=== PATIENT | female | born 1955 ===

== ENCOUNTER 2022-05-30 21:38 | Inpatient (IN) | payer MEDICARE, SELFPAY ==
[~2022-05-30] VITALS: Ht 152.4 cm; Wt 48.2 kg
[2022-05-30] VITALS (8 sets, daily range): BP systolic 83–101; BP diastolic 51–69
[2022-05-30] MEDS ORDERED: LR 500 ML IV SCH (22:05)
[2022-05-30] MEDS ORDERED: GLUCAGON INJ 1MG VIAL SC PRN (22:25)
[2022-05-30] MEDS ORDERED: GLUCOSE 4GM CHEW TABLET PO PRN (22:25)
[2022-05-30] MEDS ORDERED: DEXTROSE 50% 50 ML SYRINGE IV PRN (22:25)
[2022-05-30] MEDS ORDERED: HYDROCORTISONE 100 MG/2 ML VIAL (J1720 PER 1) IV ONE (23:00)
[2022-05-30 23:10] LABS: BASO % 0.2 % (0.0-1.0); HEMATOCRIT 34.4 % (36.0-47.0); HEMOGLOBIN 10.8 g/dl (12.0-15.5); LYMPH # 1.4 10^3/uL (1.5-5.0); LYMPH % 7.4 % (24.0-44.0); MEAN CORPUSCULAR HEMOGLOBIN 30.1 pg (27.0-33.0); MEAN CORPUSCULAR HGB CONC 31.4 g/dl (32.0-36.5); MEAN CORPUSCULAR VOLUME 95.8 fl (80.0-96.0); MONO # 1.3 10^3/uL (0.0-0.8); MONO % 6.8 % (2.0-8.0); NEUTROPHILS # 15.9 10^3/uL (1.5-8.5); PLATELET COUNT, AUTOMATED 290 10^3/uL (150-450); RED BLOOD COUNT 3.59 10^6/uL (4.00-5.40); WHITE BLOOD COUNT 18.7 10^3/uL (4.0-10.0)
[2022-05-30 23:42] LABS: CALCIUM LEVEL 8.9 MG/DL (8.8-10.2); CREATININE FOR GFR 1.29 MG/DL (0.55-1.30); GLOMERULAR FILTRATION RATE 43.9 (>45); POTASSIUM SERUM 5.2 MEQ/L (3.5-5.1)
[2022-05-30] MEDS ORDERED: CLON0.25 PO (23:55)
[2022-05-30] MEDS ORDERED: FERR1TAB8 GT (23:55)
[2022-05-30] MEDS ORDERED: CLON0.5T17 PO (23:55)
[2022-05-30] MEDS ORDERED: SYMB16INH INH (23:55)
[2022-05-30] MEDS ORDERED: MIRA3350 PO (23:55)
[2022-05-30] MEDS ORDERED: NAME10TA GT (23:55)
[2022-05-30] MEDS ORDERED: CALCD50TA GT (23:55)
[2022-05-30] MEDS ORDERED: MUPI2OI TOP (23:55)
[2022-05-30] MEDS ORDERED: DONE10TA90 GT (23:55)
[2022-05-30] MEDS ORDERED: COMBAER6 INH (23:55)
[2022-05-30] MEDS ORDERED: ZOLO100T GT (23:55)
[2022-05-30] MEDS ORDERED: OLAN2.5T25 PO (23:55)
[2022-05-30] MEDS ORDERED: ASPI81CH33 GT (23:55)
[2022-05-30] MEDS ORDERED: VITA-172 GT (23:55)
[2022-05-31] VITALS (110 sets, daily range): BP systolic 71–167; BP diastolic 36–110
[2022-05-31] MEDS ORDERED: HOME MED LIST COMPLETE! XX SCH
[2022-05-31] MEDS ORDERED: UNRESOLVED CLARIFICATION ENTRY XX SCH (00:01)
[2022-05-31] MEDS ORDERED: LR IV ONE (00:35)
[2022-05-31] MEDS ORDERED: LACTATED RINGER'S 1000 ML IV ONE (00:45)
[2022-05-31] MEDS: NOREPINEPHRINE/DEXTROSE 8 MG in IV 1 EA IV SCH ×3 (00:51→23:25)
[2022-05-31] MEDS: VASOPRESSIN INJ 20 UNITS in NS 499 ML IV SCH ×3 (00:53→17:25)
[2022-05-31] MEDS ORDERED: COMBIVENT RESPIMAT 100-20MCG INHALER 4GM INH PRN (01:05)
[2022-05-31] MEDS ORDERED: IPRATROPIUM 0.5MG/ALBUTEROL 2.5MG INH SOL UD 3ML (DUONEB) NEB PRN (01:10)
[2022-05-31] MEDS ORDERED: ETOMIDATE INJ 20MG/10ML VIAL IV ONE (01:55)
[2022-05-31] MEDS ORDERED: ROCURONIUM BROMIDE 50 MG/5 ML VIAL IV ONE (01:55)
[2022-05-31 01:56] LABS: CK-MB VALUE MASS 12.5 NG/ML (<3.6); MB/CK RELATIVE INDEX 7.44 (< OR =4)
[2022-05-31] MEDS ORDERED: LEVALBUTEROL 1.25 MG/0.5 ML CONCENTRATE NEB NEB ONE (02:00)
[2022-05-31] MEDS ORDERED: levETIRAcetam INJection 500 MG in D5W MINI-BAG PLUS 100 ML IV ONE (02:00)
[2022-05-31] MEDS ORDERED: propofoL 1,000 MG in IV 1 EA IV SCH (02:00)
[2022-05-31] MEDS: IPRATROPIUM 0.5MG/ALBUTEROL 2.5MG INH SOL UD 3ML (DUONEB) NEB SCH ×7 (02:21→23:46)
[2022-05-31 02:35] LABS: ABG BASE EXCESS -19.3 (-2.0-2.0); ABG O2 SATURATION 99.4 % (95.0-99.0); ABG PARTIAL PRESSURE CO2 35.7 mmHg (35.0-45.0); ABG PARTIAL PRESSURE O2 234.7 mmHg (75.0-100.0); ABG STANDARD HCO3 10.2 MEQ/L (22.0-26.0); ABG TOTAL CO2 11.1 MEQ/L (23.0-31.0)
[2022-05-31 02:36] LABS: ABG pH (ARTERIAL) 7.064 UNITS (7.350-7.450)
[2022-05-31] MEDS ORDERED: ATROPINE SULF 1MG/10ML SYRINGE (J0461) ONE (03:45)
[2022-05-31] MEDS ORDERED: EPINEPHrine 1MG/10ML SYRINGE 1.5IN ONE (03:45)
[2022-05-31 03:53] LABS: BASO # 0.1 10^3/uL (0.0-0.2); BASO % 0.3 % (0.0-1.0); HEMATOCRIT 34.7 % (36.0-47.0); HEMOGLOBIN 10.8 g/dl (12.0-15.5); LYMPH % 2.9 % (24.0-44.0); MEAN CORPUSCULAR HEMOGLOBIN 30.3 pg (27.0-33.0); MEAN CORPUSCULAR HGB CONC 31.1 g/dl (32.0-36.5); MEAN CORPUSCULAR VOLUME 97.2 fl (80.0-96.0); MONO % 5.2 % (2.0-8.0); NEUTROPHILS # 31.2 10^3/uL (1.5-8.5); NEUTROPHILS % 89.4 % (36.0-66.0); PLATELET COUNT, AUTOMATED 310 10^3/uL (150-450); RED BLOOD COUNT 3.57 10^6/uL (4.00-5.40)
[2022-05-31 04:12] LABS: MONO # 1.8 10^3/uL (0.0-0.8); WHITE BLOOD COUNT 34.8 10^3/uL (4.0-10.0)
[2022-05-31 04:24] LABS: CK-MB VALUE MASS 14.5 NG/ML (<3.6); MB/CK RELATIVE INDEX 6.42 (< OR =4)
[2022-05-31] MEDS: ENOXAPARIN 60MG/0.6ML SYRINGE (J1650 PER 10MG) SC SCH ×2 (04:52→17:33)
[2022-05-31] MEDS: HYDROCORTISONE 100 MG/2 ML VIAL (J1720 PER 1) IV SCH ×4 (04:53→22:52)
[2022-05-31 05:54] LABS: ABG BASE EXCESS -15.6 (-2.0-2.0); ABG HCO3 11.2 MEQ/L (22.0-26.0); ABG O2 SATURATION 97.2 % (95.0-99.0); ABG PARTIAL PRESSURE CO2 29.4 mmHg (35.0-45.0); ABG PARTIAL PRESSURE O2 109.5 mmHg (75.0-100.0); ABG STANDARD HCO3 12.6 MEQ/L (22.0-26.0); ABG TOTAL CO2 12.1 MEQ/L (23.0-31.0)
[2022-05-31 05:57] LABS: ABG pH (ARTERIAL) 7.197 UNITS (7.350-7.450)
[2022-05-31] MEDS ORDERED: VANCOMYCIN HCL 1,000 MG, VIAL MATE ADAPTER 1 EACH in NS 250 ML IV SCH (06:00)
[2022-05-31 06:09] LABS: BASO # 0.1 10^3/uL (0.0-0.2); BASO % 0.3 % (0.0-1.0); HEMATOCRIT 35.9 % (36.0-47.0); HEMOGLOBIN 11.2 g/dl (12.0-15.5); LYMPH % 2.7 % (24.0-44.0); MEAN CORPUSCULAR HEMOGLOBIN 29.8 pg (27.0-33.0); MEAN CORPUSCULAR HGB CONC 31.2 g/dl (32.0-36.5); MEAN CORPUSCULAR VOLUME 95.5 fl (80.0-96.0); NEUTROPHILS # 31.9 10^3/uL (1.5-8.5); NEUTROPHILS % 89.5 % (36.0-66.0); PLATELET COUNT, AUTOMATED 294 10^3/uL (150-450); RED BLOOD COUNT 3.76 10^6/uL (4.00-5.40)
[2022-05-31 06:14] LABS: MONO % 5.6 % (2.0-8.0); WHITE BLOOD COUNT 35.6 10^3/uL (4.0-10.0)
[2022-05-31 06:32] LABS: ALBUMIN 2.5 GM/DL (3.2-5.2); BILIRUBIN,TOTAL 0.9 MG/DL (0.2-1.0); CALCIUM LEVEL 8.6 MG/DL (8.8-10.2); CREATININE FOR GFR 1.52 MG/DL (0.55-1.30); GLOMERULAR FILTRATION RATE 36.3 (>45); POTASSIUM SERUM 3.9 MEQ/L (3.5-5.1); TOTAL PROTEIN 5.7 GM/DL (6.4-8.2)
[2022-05-31 06:40] LABS: CK-MB VALUE MASS 16.9 NG/ML (<3.6); MB/CK RELATIVE INDEX 7.1 (< OR =4)
[2022-05-31] MEDS ORDERED: SYMBICORT 160/4.5MCG INHALER 6GM INH SCH (08:00)
[2022-05-31] MEDS: AZITHROMYCIN INJ 500 MG, VIAL MATE ADAPTER 1 EACH in NS 250 ML IV SCH (08:21)
[2022-05-31] MEDS: LR 1,000 ML IV SCH ×2 (08:30→09:03)
[2022-05-31] MEDS: MIDAZOLAM INJ 2MG/2ML VIAL (J2250 PER 1MG) IV PRN ×2 (08:41→13:42)
[2022-05-31 08:45] LABS: CK-MB VALUE MASS 16.1 NG/ML (<3.6); MB/CK RELATIVE INDEX 7.06 (< OR =4)
[2022-05-31] MEDS: fentaNYL CITRATE 1,000 MCG in NS 80 ML IV SCH (08:58)
[2022-05-31] MEDS ORDERED: ASPIRIN 81 MG CHEW TABLET PO SCH (09:00)
[2022-05-31] MEDS ORDERED: ENOXAPARIN 40MG/0.4ML SYRINGE (J1650 PER 10MG) SC SCH (09:00)
[2022-05-31] MEDS ORDERED: cefTRIAXone SOD 1 GM in D5W MINI-BAG PLUS 50 ML IV SCH (09:00)
[2022-05-31] MEDS: CHLORHEXIDINE GLUCONATE 0.12 % 15ML UDC (PERIDEX ORAL RINSE) MT SCH ×2 (09:00→21:31)
[2022-05-31] MEDS ORDERED: VASOPRESSIN INJ 20 UNITS/ML VIAL As Ordered ONE (09:43)
[2022-05-31] MEDS ORDERED: MIDAZOLAM 5MG/ML 1ML VIAL (J2250 PER 1MG) As Ordered ONE (09:47)
[2022-05-31] MEDS ORDERED: fentaNYL 100 MCG/2 ML INJECTION As Ordered ONE (09:47)
[2022-05-31] MEDS ORDERED: LIDOCAINE 1% MDV 20ML VIAL As Ordered ONE (09:49)
[2022-05-31] MEDS ORDERED: MIDAZOLAM 5MG/ML 1ML VIAL (J2250 PER 1MG) IV ONE (09:50)
[2022-05-31] MEDS ORDERED: LIDOCAINE 1% MDV 20ML VIAL IM ONE (09:50)
[2022-05-31] MEDS ORDERED: fentaNYL 100 MCG/2 ML INJECTION IV ONE (09:50)
[2022-05-31] MEDS ORDERED: SODIUM CHLORIDE 0.9% INJ 10 ML SYR IV PRN (10:50)
[2022-05-31 11:28] LABS: ABG BASE EXCESS -17.5 (-2.0-2.0); ABG HCO3 8.5 MEQ/L (22.0-26.0); ABG O2 SATURATION 98.5 % (95.0-99.0); ABG PARTIAL PRESSURE CO2 21.7 mmHg (35.0-45.0); ABG PARTIAL PRESSURE O2 149.3 mmHg (75.0-100.0); ABG STANDARD HCO3 11.3 MEQ/L (22.0-26.0); ABG TOTAL CO2 9.2 MEQ/L (23.0-31.0)
[2022-05-31 11:31] LABS: ABG pH (ARTERIAL) 7.213 UNITS (7.350-7.450)
[2022-05-31] MEDS: PANTOPRAZOLE 40MG VIAL IV SCH (11:40)
[2022-05-31] MEDS: PIPERACILLIN/TAZOBACTAM SOD 4.5 GM in D5W MINI-BAG PLUS 50 ML IV SCH ×2 (11:48→18:54)
[2022-05-31] MEDS ORDERED: VANCOMYCIN HCL 500 MG in D5W MINI-BAG PLUS 100 ML IV SCH (12:00)
[2022-05-31 12:35] LABS: INR 2.04; PROTHROMBIN TIME 23.5 SECONDS (12.7-14.5)
[2022-05-31 12:36] LABS: PARTIAL THROMBOPLASTIN TIME 60.6 SECONDS (25.9-37.0)
[2022-05-31] MEDS: VANCOMYCIN HCL 500 MG in D5W MINI-BAG PLUS 100 ML IV SCH (13:12)
[2022-05-31] MEDS ORDERED: LR 1,000 ML IV ONE (13:30)
[2022-05-31] MEDS: ASPIRIN 300 MG SUPP PR SCH (14:53)
[2022-05-31 15:42] LABS: MAGNESIUM LEVEL 2.2 MG/DL (1.8-2.4)
[2022-05-31 16:39] LABS: ABG HCO3 13.3 MEQ/L (22.0-26.0); ABG O2 SATURATION 98.5 % (95.0-99.0); ABG PARTIAL PRESSURE CO2 28.6 mmHg (35.0-45.0); ABG PARTIAL PRESSURE O2 143.6 mmHg (75.0-100.0); ABG TOTAL CO2 14.2 MEQ/L (23.0-31.0); ABG pH (ARTERIAL) 7.285 UNITS (7.350-7.450)
[2022-05-31] MEDS: levETIRAcetam INJection 500 MG in D5W MINI-BAG PLUS 100 ML IV SCH (17:31)
[2022-05-31 18:21] LABS: ABG BASE EXCESS -10.8 (-2.0-2.0); ABG HCO3 13.9 MEQ/L (22.0-26.0); ABG O2 SATURATION 97.7 % (95.0-99.0); ABG PARTIAL PRESSURE CO2 27.5 mmHg (35.0-45.0); ABG PARTIAL PRESSURE O2 109.4 mmHg (75.0-100.0); ABG STANDARD HCO3 15.9 MEQ/L (22.0-26.0); ABG TOTAL CO2 14.7 MEQ/L (23.0-31.0); ABG pH (ARTERIAL) 7.321 UNITS (7.350-7.450)
[2022-05-31 19:56] LABS: ABG BASE EXCESS -9.9 (-2.0-2.0); ABG HCO3 14.4 MEQ/L (22.0-26.0); ABG O2 SATURATION 98.4 % (95.0-99.0); ABG PARTIAL PRESSURE O2 128.9 mmHg (75.0-100.0); ABG STANDARD HCO3 16.5 MEQ/L (22.0-26.0); ABG TOTAL CO2 15.2 MEQ/L (23.0-31.0); ABG pH (ARTERIAL) 7.344 UNITS (7.350-7.450)
[2022-05-31 20:15] LABS: INR 2.23; PROTHROMBIN TIME 25.1 SECONDS (12.7-14.5)
[2022-05-31 20:16] LABS: PARTIAL THROMBOPLASTIN TIME 47.7 SECONDS (25.9-37.0)
[2022-05-31 20:20] LABS: BLOOD UREA NITROGEN 15 MG/DL (7-18); CALCIUM LEVEL 7.4 MG/DL (8.8-10.2); CARBON DIOXIDE LEVEL 13 MEQ/L (21-32); CHLORIDE LEVEL 108 MEQ/L (98-107); GLOMERULAR FILTRATION RATE > 60.0 (>45); GLUCOSE, FASTING 197 MG/DL (70-100); MAGNESIUM LEVEL 1.9 MG/DL (1.8-2.4); PHOSPHORUS LEVEL 2.7 MG/DL (2.5-4.9); POTASSIUM SERUM 4.3 MEQ/L (3.5-5.1); SODIUM LEVEL 138 MEQ/L (136-145)
[2022-05-31] MEDS ORDERED: MAG SULF 1GM/100ML (MAG RUN) 1 GM in IV 1 EA IV ONE (22:00)
[2022-05-31 22:09] LABS: ABG pH (ARTERIAL) 7.373 UNITS (7.350-7.450)
[2022-05-31 22:10] LABS: ABG BASE EXCESS -10.7 (-2.0-2.0); ABG HCO3 12.8 MEQ/L (22.0-26.0); ABG O2 SATURATION 97.6 % (95.0-99.0); ABG PARTIAL PRESSURE CO2 22.5 mmHg (35.0-45.0); ABG STANDARD HCO3 15.9 MEQ/L (22.0-26.0); ABG TOTAL CO2 13.5 MEQ/L (23.0-31.0)
[2022-05-31] MEDS: CALCIUM GLUCONATE 1,000 MG in D5W MINI-BAG PLUS 100 ML IV SCH ×2 (22:52→23:25)
[2022-06-01] VITALS (89 sets, daily range): BP systolic 77–169; BP diastolic 54–121
[2022-06-01 00:01] LABS: ABG BASE EXCESS -8.9 (-2.0-2.0); ABG HCO3 14.7 MEQ/L (22.0-26.0); ABG O2 SATURATION 98.7 % (95.0-99.0); ABG PARTIAL PRESSURE CO2 25.1 mmHg (35.0-45.0); ABG PARTIAL PRESSURE O2 132.8 mmHg (75.0-100.0); ABG STANDARD HCO3 17.3 MEQ/L (22.0-26.0); ABG TOTAL CO2 15.5 MEQ/L (23.0-31.0); ABG pH (ARTERIAL) 7.385 UNITS (7.350-7.450)
[2022-06-01] MEDS: MIDAZOLAM INJ 2MG/2ML VIAL (J2250 PER 1MG) IV PRN (00:29)
[2022-06-01] MEDS: VANCOMYCIN HCL 500 MG in D5W MINI-BAG PLUS 100 ML IV SCH (00:29)
[2022-06-01] MEDS: VASOPRESSIN INJ 20 UNITS in NS 499 ML IV SCH ×3 (00:58→16:44)
[2022-06-01 01:31] LABS: ABG BASE EXCESS -8.4 (-2.0-2.0); ABG HCO3 14.6 MEQ/L (22.0-26.0); ABG O2 SATURATION 98.8 % (95.0-99.0); ABG PARTIAL PRESSURE CO2 23.1 mmHg (35.0-45.0); ABG PARTIAL PRESSURE O2 164.2 mmHg (75.0-100.0); ABG STANDARD HCO3 17.7 MEQ/L (22.0-26.0); ABG TOTAL CO2 15.3 MEQ/L (23.0-31.0); ABG pH (ARTERIAL) 7.418 UNITS (7.350-7.450)
[2022-06-01 02:05] LABS: BLOOD UREA NITROGEN 13 MG/DL (7-18); CALCIUM LEVEL 8.1 MG/DL (8.8-10.2); CARBON DIOXIDE LEVEL 18 MEQ/L (21-32); CHLORIDE LEVEL 104 MEQ/L (98-107); CREATININE FOR GFR 0.83 MG/DL (0.55-1.30); GLOMERULAR FILTRATION RATE > 60.0 (>45); GLUCOSE, FASTING 205 MG/DL (70-100); MAGNESIUM LEVEL 2.2 MG/DL (1.8-2.4); POTASSIUM SERUM 4.1 MEQ/L (3.5-5.1); SODIUM LEVEL 135 MEQ/L (136-145)
[2022-06-01] MEDS: PIPERACILLIN/TAZOBACTAM SOD 4.5 GM in D5W MINI-BAG PLUS 50 ML IV SCH ×3 (02:52→18:37)
[2022-06-01] MEDS ORDERED: CALCIUM GLUCONATE 1,000 MG, VIAL MATE ADAPTER 1 EACH in NS 100 ML IV ONE ×3 (03:00→15:20)
[2022-06-01] MEDS ORDERED: SODIUM PHOSPHATE INJ 30 MMOL in NS 250 ML IV ONE (04:00)
[2022-06-01] MEDS: IPRATROPIUM 0.5MG/ALBUTEROL 2.5MG INH SOL UD 3ML (DUONEB) NEB SCH ×5 (04:05→19:13)
[2022-06-01 04:09] LABS: ABG BASE EXCESS -6.7 (-2.0-2.0); ABG HCO3 16.4 MEQ/L (22.0-26.0); ABG O2 SATURATION 98.9 % (95.0-99.0); ABG PARTIAL PRESSURE CO2 25.6 mmHg (35.0-45.0); ABG PARTIAL PRESSURE O2 150.1 mmHg (75.0-100.0); ABG TOTAL CO2 17.2 MEQ/L (23.0-31.0); ABG pH (ARTERIAL) 7.425 UNITS (7.350-7.450)
[2022-06-01] MEDS: HYDROCORTISONE 100 MG/2 ML VIAL (J1720 PER 1) IV SCH ×4 (04:12→23:14)
[2022-06-01] MEDS: levETIRAcetam INJection 500 MG in D5W MINI-BAG PLUS 100 ML IV SCH (05:17)
[2022-06-01] MEDS: ENOXAPARIN 60MG/0.6ML SYRINGE (J1650 PER 10MG) SC SCH ×2 (05:17→17:43)
[2022-06-01 06:00] LABS: ABG BASE EXCESS -7.7 (-2.0-2.0); ABG HCO3 15.5 MEQ/L (22.0-26.0); ABG O2 SATURATION 98.3 % (95.0-99.0); ABG PARTIAL PRESSURE CO2 24.7 mmHg (35.0-45.0); ABG PARTIAL PRESSURE O2 124.2 mmHg (75.0-100.0); ABG STANDARD HCO3 18.2 MEQ/L (22.0-26.0); ABG TOTAL CO2 16.2 MEQ/L (23.0-31.0); ABG pH (ARTERIAL) 7.415 UNITS (7.350-7.450)
[2022-06-01 06:09] LABS: BASO % 0.1 % (0.0-1.0); HEMATOCRIT 27.5 % (36.0-47.0); HEMOGLOBIN 9.3 g/dl (12.0-15.5); LYMPH # 1.6 10^3/uL (1.5-5.0); LYMPH % 5.3 % (24.0-44.0); MEAN CORPUSCULAR HEMOGLOBIN 30.6 pg (27.0-33.0); MEAN CORPUSCULAR HGB CONC 33.8 g/dl (32.0-36.5); MEAN CORPUSCULAR VOLUME 90.5 fl (80.0-96.0); MONO % 5.1 % (2.0-8.0); NEUTROPHILS # 26.6 10^3/uL (1.5-8.5); RED BLOOD COUNT 3.04 10^6/uL (4.00-5.40)
[2022-06-01 06:21] LABS: PLATELET COUNT, AUTOMATED 155 10^3/uL (150-450); WHITE BLOOD COUNT 30.3 10^3/uL (4.0-10.0)
[2022-06-01 06:22] LABS: INR 2.18; PROTHROMBIN TIME 24.6 SECONDS (12.7-14.5)
[2022-06-01 06:23] LABS: PARTIAL THROMBOPLASTIN TIME 53.3 SECONDS (25.9-37.0)
[2022-06-01 06:29] LABS: MONO # 1.6 10^3/uL (0.0-0.8)
[2022-06-01] MEDS: CALCIUM GLUCONATE 1,000 MG, VIAL MATE ADAPTER 1 EACH in NS 100 ML IV SCH ×2 (06:31→07:56)
[2022-06-01 06:45] LABS: ALT/SGPT 2128 U/L (12-78); BILIRUBIN,TOTAL 1.1 MG/DL (0.2-1.0); BLOOD UREA NITROGEN 11 MG/DL (7-18); CALCIUM LEVEL 7.7 MG/DL (8.8-10.2); CARBON DIOXIDE LEVEL 17 MEQ/L (21-32); CHLORIDE LEVEL 104 MEQ/L (98-107); GLOMERULAR FILTRATION RATE > 60.0 (>45); GLUCOSE, FASTING 183 MG/DL (70-100); MAGNESIUM LEVEL 2.1 MG/DL (1.8-2.4); PHOSPHORUS LEVEL 3.1 MG/DL (2.5-4.9); POTASSIUM SERUM 4.4 MEQ/L (3.5-5.1); SODIUM LEVEL 133 MEQ/L (136-145); TOTAL PROTEIN 4.4 GM/DL (6.4-8.2)
[2022-06-01] MEDS ORDERED: MIDAZOLAM 5MG/ML 1ML VIAL (J2250 PER 1MG) IV STA (07:10)
[2022-06-01] MEDS: NOREPINEPHRINE/DEXTROSE 8 MG in IV 1 EA IV SCH ×3 (07:58→23:15)
[2022-06-01] MEDS: AZITHROMYCIN INJ 500 MG, VIAL MATE ADAPTER 1 EACH in NS 250 ML IV SCH (07:59)
[2022-06-01 08:19] LABS: HEMATOCRIT 27.3 % (36.0-47.0); HEMOGLOBIN 9.1 g/dl (12.0-15.5); MEAN CORPUSCULAR HGB CONC 33.3 g/dl (32.0-36.5); MEAN CORPUSCULAR VOLUME 90.1 fl (80.0-96.0); PLATELET COUNT, AUTOMATED 165 10^3/uL (150-450); RED BLOOD COUNT 3.03 10^6/uL (4.00-5.40); WHITE BLOOD COUNT 29.7 10^3/uL (4.0-10.0)
[2022-06-01 08:52] LABS: BLOOD UREA NITROGEN 10 MG/DL (7-18); CALCIUM LEVEL 7.9 MG/DL (8.8-10.2); CARBON DIOXIDE LEVEL 15 MEQ/L (21-32); CHLORIDE LEVEL 107 MEQ/L (98-107); CREATININE FOR GFR 0.71 MG/DL (0.55-1.30); GLOMERULAR FILTRATION RATE > 60.0 (>45); GLUCOSE, FASTING 168 MG/DL (70-100); MAGNESIUM LEVEL 2.1 MG/DL (1.8-2.4); PHOSPHORUS LEVEL 3.5 MG/DL (2.5-4.9); POTASSIUM SERUM 4.1 MEQ/L (3.5-5.1); SODIUM LEVEL 137 MEQ/L (136-145)
[2022-06-01] MEDS: fentaNYL CITRATE 1,000 MCG in NS 80 ML IV SCH (09:56)
[2022-06-01] MEDS: CHLORHEXIDINE GLUCONATE 0.12 % 15ML UDC (PERIDEX ORAL RINSE) MT SCH ×2 (10:27→22:01)
[2022-06-01] MEDS: PANTOPRAZOLE 40MG VIAL IV SCH (10:27)
[2022-06-01 10:47] LABS: ABG BASE EXCESS -7.7 (-2.0-2.0); ABG HCO3 16.3 MEQ/L (22.0-26.0); ABG PARTIAL PRESSURE CO2 28.1 mmHg (35.0-45.0); ABG PARTIAL PRESSURE O2 99.8 mmHg (75.0-100.0); ABG STANDARD HCO3 18.2 MEQ/L (22.0-26.0); ABG TOTAL CO2 17.2 MEQ/L (23.0-31.0); ABG pH (ARTERIAL) 7.382 UNITS (7.350-7.450)
[2022-06-01] MEDS: VANCOMYCIN HCL 750 MG, VIAL MATE ADAPTER 1 EACH in D5W 250 ML IV SCH ×2 (12:10→23:14)
[2022-06-01] MEDS: ASPIRIN 300 MG SUPP PR SCH (14:35)
[2022-06-01 14:36] LABS: HEMATOCRIT 26.4 % (36.0-47.0); HEMOGLOBIN 8.9 g/dl (12.0-15.5); MEAN CORPUSCULAR HEMOGLOBIN 30.6 pg (27.0-33.0); MEAN CORPUSCULAR HGB CONC 33.7 g/dl (32.0-36.5); MEAN CORPUSCULAR VOLUME 90.7 fl (80.0-96.0); PLATELET COUNT, AUTOMATED 154 10^3/uL (150-450); RED BLOOD COUNT 2.91 10^6/uL (4.00-5.40)
[2022-06-01 15:03] LABS: BLOOD UREA NITROGEN 9 MG/DL (7-18); CALCIUM LEVEL 8.1 MG/DL (8.8-10.2); CARBON DIOXIDE LEVEL 20 MEQ/L (21-32); CHLORIDE LEVEL 104 MEQ/L (98-107); CREATININE FOR GFR 0.79 MG/DL (0.55-1.30); GLOMERULAR FILTRATION RATE > 60.0 (>45); GLUCOSE, FASTING 158 MG/DL (70-100); MAGNESIUM LEVEL 1.9 MG/DL (1.8-2.4); PHOSPHORUS LEVEL 2.9 MG/DL (2.5-4.9); POTASSIUM SERUM 3.8 MEQ/L (3.5-5.1); SODIUM LEVEL 135 MEQ/L (136-145)
[2022-06-01] MEDS ORDERED: MAG SULF 1GM/100ML (MAG RUN) 1 GM in IV 1 EA IV ONE ×2 (16:00→22:00)
[2022-06-01] MEDS ORDERED: KCL 20MEQ IN 100ML SWI (KRUN) 20 MEQ in IV 1 EA IV ONE ×2 (16:00)
[2022-06-01] MEDS: levETIRAcetam INJection 1,000 MG in D5W MINI-BAG PLUS 100 ML IV SCH (17:43)
[2022-06-01 20:37] LABS: INR 1.83; PROTHROMBIN TIME 21.6 SECONDS (12.7-14.5)
[2022-06-01 20:38] LABS: PARTIAL THROMBOPLASTIN TIME 50.6 SECONDS (25.9-37.0)
[2022-06-01 20:42] LABS: BLOOD UREA NITROGEN 8 MG/DL (7-18); CALCIUM LEVEL 7.8 MG/DL (8.8-10.2); CARBON DIOXIDE LEVEL 19 MEQ/L (21-32); CHLORIDE LEVEL 106 MEQ/L (98-107); GLOMERULAR FILTRATION RATE > 60.0 (>45); GLUCOSE, FASTING 146 MG/DL (70-100); MAGNESIUM LEVEL 1.8 MG/DL (1.8-2.4); PHOSPHORUS LEVEL 2.1 MG/DL (2.5-4.9); SODIUM LEVEL 138 MEQ/L (136-145)
[2022-06-02] VITALS (71 sets, daily range): BP systolic 80–181; BP diastolic 54–224
[2022-06-02] MEDS: IPRATROPIUM 0.5MG/ALBUTEROL 2.5MG INH SOL UD 3ML (DUONEB) NEB SCH ×5 (00:02→15:32)
[2022-06-02] MEDS: VASOPRESSIN INJ 20 UNITS in NS 499 ML IV SCH ×2 (00:18→08:20)
[2022-06-02 00:54] LABS: ABG BASE EXCESS -0.6 (-2.0-2.0); ABG HCO3 22.5 MEQ/L (22.0-26.0); ABG O2 SATURATION 98.2 % (95.0-99.0); ABG PARTIAL PRESSURE O2 111.5 mmHg (75.0-100.0); ABG TOTAL CO2 23.5 MEQ/L (23.0-31.0); ABG pH (ARTERIAL) 7.479 UNITS (7.350-7.450)
[2022-06-02] MEDS ORDERED: POTASSIUM PHOSPHATE INJ 30 MMOL in D5W 250 ML IV ONE ×4 (01:00)
[2022-06-02 03:09] LABS: BLOOD UREA NITROGEN 8 MG/DL (7-18); CALCIUM LEVEL 8.2 MG/DL (8.8-10.2); CARBON DIOXIDE LEVEL 19 MEQ/L (21-32); CHLORIDE LEVEL 105 MEQ/L (98-107); CREATININE FOR GFR 0.77 MG/DL (0.55-1.30); GLOMERULAR FILTRATION RATE > 60.0 (>45); GLUCOSE, FASTING 139 MG/DL (70-100); MAGNESIUM LEVEL 1.9 MG/DL (1.8-2.4); PHOSPHORUS LEVEL 2.5 MG/DL (2.5-4.9); POTASSIUM SERUM 4.2 MEQ/L (3.5-5.1); SODIUM LEVEL 136 MEQ/L (136-145)
[2022-06-02] MEDS: PIPERACILLIN/TAZOBACTAM SOD 4.5 GM in D5W MINI-BAG PLUS 50 ML IV SCH ×3 (03:10→18:00)
[2022-06-02] MEDS ORDERED: MAG SULF 1GM/100ML (MAG RUN) 1 GM in IV 1 EA IV ONE (04:00)
[2022-06-02] MEDS: MIDAZOLAM INJ 2MG/2ML VIAL (J2250 PER 1MG) IV PRN ×2 (04:12→14:03)
[2022-06-02] MEDS: HYDROCORTISONE 100 MG/2 ML VIAL (J1720 PER 1) IV SCH ×3 (04:13→16:18)
[2022-06-02] MEDS: levETIRAcetam INJection 1,000 MG in D5W MINI-BAG PLUS 100 ML IV SCH ×2 (06:17→17:07)
[2022-06-02] MEDS: ENOXAPARIN 60MG/0.6ML SYRINGE (J1650 PER 10MG) SC SCH ×2 (06:18→17:07)
[2022-06-02 06:41] LABS: ABG BASE EXCESS -5.7 (-2.0-2.0); ABG HCO3 17.7 MEQ/L (22.0-26.0); ABG O2 SATURATION 97.5 % (95.0-99.0); ABG PARTIAL PRESSURE CO2 27.5 mmHg (35.0-45.0); ABG PARTIAL PRESSURE O2 108.1 mmHg (75.0-100.0); ABG STANDARD HCO3 19.8 MEQ/L (22.0-26.0); ABG TOTAL CO2 18.6 MEQ/L (23.0-31.0); ABG pH (ARTERIAL) 7.427 UNITS (7.350-7.450)
[2022-06-02 06:42] LABS: BASO % 0.1 % (0.0-1.0); HEMATOCRIT 25.1 % (36.0-47.0); HEMOGLOBIN 8.3 g/dl (12.0-15.5); LYMPH # 1.4 10^3/uL (1.5-5.0); MEAN CORPUSCULAR HEMOGLOBIN 30.5 pg (27.0-33.0); MEAN CORPUSCULAR HGB CONC 33.1 g/dl (32.0-36.5); MEAN CORPUSCULAR VOLUME 92.3 fl (80.0-96.0); MONO # 1.3 10^3/uL (0.0-0.8); MONO % 4.7 % (2.0-8.0); NEUTROPHILS # 24.7 10^3/uL (1.5-8.5); NEUTROPHILS % 89.1 % (36.0-66.0); PLATELET COUNT, AUTOMATED 147 10^3/uL (150-450); RED BLOOD COUNT 2.72 10^6/uL (4.00-5.40); WHITE BLOOD COUNT 27.7 10^3/uL (4.0-10.0)
[2022-06-02] MEDS: NOREPINEPHRINE/DEXTROSE 8 MG in IV 1 EA IV SCH (07:24)
[2022-06-02 07:26] LABS: ALBUMIN 1.9 GM/DL (3.2-5.2); ALT/SGPT 2372 U/L (12-78); BILIRUBIN,TOTAL 1.2 MG/DL (0.2-1.0); BLOOD UREA NITROGEN 7 MG/DL (7-18); CALCIUM LEVEL 8.1 MG/DL (8.8-10.2); CARBON DIOXIDE LEVEL 18 MEQ/L (21-32); CHLORIDE LEVEL 104 MEQ/L (98-107); CREATININE FOR GFR 0.73 MG/DL (0.55-1.30); GLOMERULAR FILTRATION RATE > 60.0 (>45); GLUCOSE, FASTING 181 MG/DL (70-100); POTASSIUM SERUM 4.7 MEQ/L (3.5-5.1); SODIUM LEVEL 135 MEQ/L (136-145); TOTAL PROTEIN 4.6 GM/DL (6.4-8.2)
[2022-06-02] MEDS ORDERED: CALCIUM GLUCONATE 1,000 MG, VIAL MATE ADAPTER 1 EACH in NS 100 ML IV ONE (08:00)
[2022-06-02] MEDS: PANTOPRAZOLE 40MG VIAL IV SCH (08:20)
[2022-06-02] MEDS: CHLORHEXIDINE GLUCONATE 0.12 % 15ML UDC (PERIDEX ORAL RINSE) MT SCH (08:20)
[2022-06-02] MEDS: AZITHROMYCIN INJ 500 MG, VIAL MATE ADAPTER 1 EACH in NS 250 ML IV SCH (08:20)
[2022-06-02 08:42] LABS: BLOOD UREA NITROGEN 7 MG/DL (7-18); CARBON DIOXIDE LEVEL 18 MEQ/L (21-32); CHLORIDE LEVEL 104 MEQ/L (98-107); CREATININE FOR GFR 0.77 MG/DL (0.55-1.30); GLOMERULAR FILTRATION RATE > 60.0 (>45); GLUCOSE, FASTING 131 MG/DL (70-100); MAGNESIUM LEVEL 2.2 MG/DL (1.8-2.4); PHOSPHORUS LEVEL 3.1 MG/DL (2.5-4.9); POTASSIUM SERUM 4.2 MEQ/L (3.5-5.1); SODIUM LEVEL 136 MEQ/L (136-145)
[2022-06-02] MEDS ORDERED: SODIUM CHLORIDE 0.9% INJ 10 ML SYR IV PRN (09:00)
[2022-06-02] MEDS: ASPIRIN 300 MG SUPP PR SCH (09:31)
[2022-06-02] MEDS: fentaNYL CITRATE 1,000 MCG in NS 80 ML IV SCH (09:31)
[2022-06-02] MEDS: VANCOMYCIN HCL 750 MG, VIAL MATE ADAPTER 1 EACH in D5W 250 ML IV SCH (11:58)
[2022-06-02] MEDS ORDERED: NOREPINEPHRINE BITARTRATE 16 MG in D5W 484 ML IV SCH (12:00)
[2022-06-02] MEDS ORDERED: VASOPRESSIN INJ 40 UNITS in NS 498 ML IV SCH (12:00)
[2022-06-02 14:47] LABS: BLOOD UREA NITROGEN 7 MG/DL (7-18); CALCIUM LEVEL 8.5 MG/DL (8.8-10.2); CARBON DIOXIDE LEVEL 17 MEQ/L (21-32); CHLORIDE LEVEL 106 MEQ/L (98-107); CREATININE FOR GFR 0.78 MG/DL (0.55-1.30); GLOMERULAR FILTRATION RATE > 60.0 (>45); GLUCOSE, FASTING 126 MG/DL (70-100); PHOSPHORUS LEVEL 2.5 MG/DL (2.5-4.9); POTASSIUM SERUM 3.9 MEQ/L (3.5-5.1); SODIUM LEVEL 138 MEQ/L (136-145)
[2022-06-02] MEDS ORDERED: KCL 20MEQ IN 100ML SWI (KRUN) 20 MEQ in IV 1 EA IV ONE ×2 (15:00)
[2022-06-02] MEDS ORDERED: POTASSIUM PHOSPHATE INJ 15 MMOL in D5W 250 ML IV ONE (16:00)
[2022-06-02] MEDS ORDERED: LORazepam 2 MG/ML VIAL IV PRN (18:20)
[2022-06-02] MEDS ORDERED: MORPHINE 4 MG/ML 1ML VIAL/SYRINGE IV ONE (18:30)
[2022-06-02] MEDS: MORPHINE SULF IN 0.9% NACL 100 MG in IV 1 EA IV SCH ×2 (18:44)
[2022-06-02] MEDS: GLYCOPYRROLATE INJ 0.2 MG/ML 2 ML VIAL IV SCH (18:44)
[2022-06-03] MEDS: MORPHINE SULF IN 0.9% NACL 100 MG in IV 1 EA IV SCH ×2 (07:07)
[2022-06-03] MEDS: GLYCOPYRROLATE INJ 0.2 MG/ML 2 ML VIAL IV SCH ×2 (07:46→13:42)
== END 2022-06-03 17:12 | disposition expired | DRG 871 ==
LOC: M ICU 21:38
PROVIDERS: ADMIT Internal Medicine; ATTEND Internal Medicine
PROC: 02HV33Z Insertion of Infusion Device into Superior Vena Cava, Percutaneous Approach (ICD-10-PCS; principal; 2022-05-31)
PROC: 0JH63XZ Insertion of Tunneled Vascular Access Device into Chest Subcutaneous Tissue and Fascia, Percutaneous Approach (ICD-10-PCS; 2022-05-31)
PROC: 5A1945Z Respiratory Ventilation, 24-96 Consecutive Hours (ICD-10-PCS; 2022-05-31)
DX: A41.50 Gram-negative sepsis, unspecified (principal); I21.A1 Myocardial infarction type 2; J69.0 Pneumonitis due to inhalation of food and vomit; R65.21 Severe sepsis with septic shock; G93.40 Encephalopathy, unspecified; I13.2 Hypertensive heart and chronic kidney disease with heart failure and with stage 5 chronic kidney disease, or end stage renal disease; N17.9 Acute kidney failure, unspecified; E87.2 Acidosis; N39.0 Urinary tract infection, site not specified; R56.9 Unspecified convulsions; J44.9 Chronic obstructive pulmonary disease, unspecified; D64.9 Anemia, unspecified; E78.5 Hyperlipidemia, unspecified; F03.90 Unspecified dementia, unspecified severity, without behavioral disturbance, psychotic disturbance, mood disturbance, and anxiety; J45.909 Unspecified asthma, uncomplicated; Z74.01 Bed confinement status; I46.9 Cardiac arrest, cause unspecified; Z79.899 Other long term (current) drug therapy; Z79.82 Long term (current) use of aspirin; E83.42 Hypomagnesemia; Z51.5 Encounter for palliative care